=== PATIENT | female | born 1975 | race American Indian/Alaskan Native ===

== ENCOUNTER 2017-07-05 08:42 | Emergency (ER) | payer MEDICAID ==
--- NOTE | 2017-07-05 11:43 | Emergency Department Report ---
HPI - General Chief Complaint: Back Pain/Injury Time Seen by Provider: 07/05/17 11:42 - HPI HPI: Patient here reports that she is having back pain to her lower back with radiating down to her hips and buttocks. She said assuming going on for a week. She says she was seen at [facility] 6 days ago and he didn't do anything. Patient blood pressure is elevated at 160/104 and she says she's been out of her blood pressure medication for 2 weeks. She takes losartan 50/ 12.5 mg HCTZ combination. Back pain is 9 out of 10 and achy. Denies any urinary burning frequency or urgency. Denies any nausea or vomiting. Last menstrual period was 07/04/2017 and she is still on her period. Denies any fever or chills. Denies any abdominal pain. Patient has a history of chronic back pain, anemia and high blood pressure. She says she took [id number] pain medication but it didn't help. ED Past Medical Hx - Past Medical History Previous Medical History?: Yes Hx Hypertension: Yes Hx Congestive Heart Failure: No Hx Diabetes: No Hx Seizures: No Hx Asthma: No Hx COPD: No Hx Dementia: No Hx HIV: No Additional medical history: ANEMIA, Back pain - Surgical History Past Surgical History?: Yes Additional Surgical History: CS - Family History Family history: hypertension - Social History Smoking Status: Former Smoker Substance Use Type: Non Opiate Pain, Prescribed - Medications Home Medications: Home Medications Medication Instructions Recorded Confirmed Last Taken Type Ferrous Sulfate 325 mg PO TID 10/26/14 05/08/16 1 Day Ago History ~10/25/14 Promethazine Dm [Phenergan Dm 5 ml PO Q6H PRN #50 ml 10/26/14 05/08/16 Unknown Rx 6.25/15 mg 5 ml] Losartan-Hctz 50-12.5 mg Tab 1 mg PO AZUL 05/08/16 05/08/16 Unknown History Azithromycin [Zithromax TAB] 250 mg PO QDAY #5 tablet 05/09/16 Unknown Rx Pantoprazole [Protonix TAB] 20 mg PO BID #60 tablet. 05/09/16 Unknown Rx Cyclobenzaprine [Flexeril] 10 mg PO TID PRN 5 Days #15 tablet 07/05/17 Unknown Rx traMADol [Ultram] 50 mg PO Q6HR PRN 5 Days #20 tablet 07/05/17 Unknown Rx ED Review of Systems ROS: Stated complaint: BACK/HIP PAIN Other details as noted in HPI Comment: All other systems reviewed and negative Constitutional: no symptoms reported ENT: denies: throat pain Respiratory: no symptoms reported Cardiovascular: denies: chest pain, palpitations, dyspnea on exertion, edema, syncope, paroxysmal nocturnal dyspnea Genitourinary: denies: urgency, dysuria, frequency, hematuria, discharge Musculoskeletal: back pain. denies: joint swelling, arthralgia, myalgia Skin: denies: rash Neurological: denies: headache, weakness, numbness, paresthesias, confusion, abnormal gait Physical Exam - Physical Exam Vital Signs: Vital Signs 07/05/17 09:26 Temperature 98.1 F Pulse Rate 85 Respiratory 20 Rate Blood Pressure 160/104 O2 Sat by Pulse 96 Oximetry Vital Signs 07/05/17 07/05/17 09:26 13:10 Temperature 98.1 F Pulse Rate 85 73 Respiratory 20 Rate Blood Pressure 160/104 143/95 O2 Sat by Pulse 96 Oximetry General: 41-year-old female well-nourished well-developed in no acute distress. Patient is morbidly obese Physical Exam: Head: Normocephalic, atraumatic, no abrasion, no bruising and no contusion. Eyes: Biateral pupils equal and reactive to light, bilateral EOM intact.. Bilateral conjunctival and sclera without injection, normal accommodation. No nystagmus Mouth: Moist, no pharyngeal exudate or erythema. No peritonsillar abscesses. Uvula is midline and oral airways patent. Neck: Supple, No Cervical adenopathy, full range of motion and no C-spine tenderness. No swelling or tracheal deviation normal reflexes Cardiovascular: S1, S2. Regular rate and rhythm. No murmur. Capillary refill is less then 3 seconds. Blood pressure elevated and asymptomatic. Lungs: Clear to auscultate bilaterally. No rhonchi, wheezes or rales. No chest wall tenderness. No chest contusion. No bruising to chest. MSK: Strength 5/5 in all extremities. No joint deformity or crepitus. Normal inspection. Full range of motion to all extremities. No laceration, abrasion or ecchymotic area noted. Patient able to fully flex and extend bilateral knees without any difficulties. Bilateral knees nontender to palpate. Abdomen: Non-tender to palpate in all quadrants, no guarding or rebound tenderness, positive bowel sounds in all quadrants. No CVA tenderness. No hernia, bruit or mass. No rigidity or distention. Extremities: No clubbing, cyanosis or edema. +2 pulses. No neurovascular compromise Skin: Clean, dry and intact. No rash or lesions. Neurological: GCS at 15, Pt is alert and oriented 3 speech is clear. Bilateral hand pen and pencil repairer strong and equal. Normal gait. Negative Romberg and no pronator drift. Normal Reflexes. No motor or sensory deficit Back: No vertebral tenderness, no paraspinal tenderness. The bend over and touch his toes without any difficulties. No saddle anesthesia and negative SLR bilaterally. Ambulates without any difficulties. Psych: Normal mood and behavior ED Course Vital Signs 07/05/17 09:26 Temperature 98.1 F Pulse Rate 85 Respiratory 20 Rate Blood Pressure 160/104 O2 Sat by Pulse 96 Oximetry Vital Signs 07/05/17 07/05/17 09:26 13:10 Temperature 98.1 F Pulse Rate 85 73 Respiratory 20 Rate Blood Pressure 160/104 143/95 O2 Sat by Pulse 96 Oximetry - Reevaluation(s) Reevaluation #1: 07/05/17 15:03 Patient given clonidine 0.1 mg by mouth in emergency room for elevated blood pressure, she was given Toradol 60 mg IM and Flexeril 10 mg by mouth for back pain. ED Medical Decision Making - Lab Data Lab Results 07/05/17 Range/Units Unknown Urine Color Yellow (Yellow) Urine Turbidity Clear (Clear) Urine pH 6.0 (5.0-7.0) Ur Specific [place] 1.025 (1.003-1.030) Urine Protein <15 mg/dl (Negative) mg/dL Urine Glucose (UA) Neg (Negative) mg/dL Urine Ketones Neg (Negative) mg/dL Urine Blood Lg (Negative) Urine Nitrite Neg (Negative) Urine Bilirubin Neg (Negative) Urine Urobilinogen 4.0 (<2.0) mg/dL Ur Leukocyte Esterase Neg (Negative) Urine WBC (Auto) 1.0 (0.0-6.0) /HPF Urine RBC (Auto) 147.0 (0.0-6.0) /HPF U Epithel Cells (Auto) 1.0 (0-13.0) /HPF Urine Mucus Few /HPF Urine HCG, Qual Negative (Negative) Patient with large amount of blood in her urine because she is on her period that started yesterday. - Radiology Data Radiology results: report reviewed CT scan of lumbar spine without contrast reveals patient with unremarkable CT of the lumbar spine. There are mild symmetric osteoarthritic changes of the S1 joints. - Medical Decision Making ED course: Patient here reports that she is having back pain or radiation to her hip and buttocks. She is has a history of chronic back pain. Urinalysis negative for any infection she has large amount of blood but she is on her period. Patient with normal back and neurological exam. Patient is morbidly obese and I discussed with her CT scan results and also urinalysis. I discussed with her that she needs to lose some weight which will help her back pain. Patient also has hypertension and has been out of her blood pressure medication for 2 weeks. She was given clonidine 0.1 mg by mouth in emergency room for blood pressure of 160/104. She was given Toradol 60 mg IM and Flexeril 10 mg by mouth for lower back pain. Blood pressure is better and her pain has been relieved. Patient discharged home with prescription for losartanTZ 5012 0.5 mg 1 tablet daily. Flexeril and Ultram. Discussed that she is to follow up with her primary care physician and also orthopedic doctor. Discharged from ED in stable condition Critical care attestation.: If time is entered above; I have spent that time in minutes in the direct care of this critically ill patient, excluding procedure time. ED Disposition Clinical Impression: Low back pain radiating to lower extremity, Osteoarthritis of sacroiliac joint , Elevated blood pressure reading with diagnosis of hypertension, Morbid obesity with BMI of 50.0-59.9, adult Disposition: DC- TO HOME OR SELFCARE Is pt being admited?: No Does the pt Need Aspirin: No Condition: Stable Instructions: Hypertension (ED), Arthralgia (ED), Back Pain (ED), Obesity (ED) , Weight Management (ED) Additional Instructions: Please follow discharge instructions on weight management. Follow-up with primary care and orthopedic doctor as instructed Please do not drive or operate heavy machinery while taking Flexeril as this medication causes drowsiness. Keep a log a few blood pressure and scheduled an appointment with your primary care doctor for evaluation. These take blood pressure medication as prescribed and please do not let medication ran out before you see your primary care doctor. If you do not have a primary care doctor then you can call [facility] and be seen there Prescriptions: Cyclobenzaprine [Flexeril] 10 mg PO TID PRN 5 Days #15 tablet PRN Reason: Muscle Spasm traMADol [Ultram] 50 mg PO Q6HR PRN 5 Days #20 tablet PRN Reason: Pain Referrals: SHILA POND MD [Primary Care Provider] - 07/07/[address] [facility] [Outside] - 07/07/17 ANNA NATHAN MD [Staff Physician] - 07/07/17 Forms: Work/School Release Form(ED)
[2017-07-05] MEDS ORDERED: FLEXERIL PO ONE (12:44)
[2017-07-05] MEDS ORDERED: TORADOL IM ONE (12:44)
[2017-07-05 12:57] LABS: Bilirubin,Urine NEG (Negative); Blood,Urine LG (Negative); Color,Urine Yellow (Yellow); HCG Qualitative,Urine Negative (Negative); Mucus,Urine FEW /HPF; Nitrite,Urine NEG (Negative); Protein,Urine <15 mg/dL mg/dL (Negative)
[2017-07-05] MEDS ORDERED: CATAPRES PO ONE (13:04)
--- NOTE | 2017-07-05 14:34 | Cat Scan Report ---
CT LUMBAR SPINE WITHOUT CONTRAST HISTORY: Lower back pain with radiculopathy TECHNIQUE: Helical CT with sagittal and coronal reformatted images. FINDINGS: The lumbar vertebral bodies, disc spaces, posterior elements, spinal canal and paraspinal soft tissues are within normal limits. There is no evidence for fracture, malalignment or bone lesion. The paraspinal soft tissues are unremarkable. There are mild symmetric osteoarthritic changes at the SI joints. IMPRESSION: Unremarkable CT of the lumbar spine.
[2017-07-05 15:20] VITALS: BP 137/75
== END 2017-07-05 15:21 | disposition home or self-care (01) ==
LOC: ED 08:42
DX: M47.898 Other spondylosis, sacral and sacrococcygeal region (principal); E66.01 Morbid (severe) obesity due to excess calories; Z68.43 Body mass index [BMI] 50.0-59.9, adult; I10 Essential (primary) hypertension
CPT/HCPCS: 72131; 81001; 81025; 96372; 99284; J1885

== ENCOUNTER 2017-12-30 22:11 | Emergency (ER) | payer MEDICAID ==
[2017-12-31 03:54] VITALS: BP 128/77
[2017-12-31] MEDS ORDERED: MOTRIN PO ONE (03:56)
--- NOTE | 2017-12-31 03:57 | Emergency Department Report ---
ED Back Pain/Injury HPI - General Chief Complaint: Back Pain/Injury Stated Complaint: ABDOMINAL PAIN Time Seen by Provider: 12/31/17 03:05 Source: patient Limitations: No Limitations - History of Present Illness Initial Comments: 42-year-old female past medical history obesity, hypertension, anemia, chronic back pain presents with acute on chronic lower back pain worse on left than right. Patient denies fevers chills nausea vomiting dysuria but does claim she has slight increased urinary frequency. Patient is awake alert and oriented 3 not in acute distress and ambulatory. Denies any direct trauma to back or recent falls. Patient is fully lucid. Does not appear to be in acute distress. Denies any saddle paresthesias. Denies any bladder or bowel incontinence. MD Complaint: back pain Onset/Timin -: days(s) Similar Symptoms Previously: No Place: home Severity: moderate Severity scale (0 -10): 5 Quality: dull, aching Consistency: intermittent Context: turning/twisting, bending Treatments Prior to Arrival: acetaminophen, other medications - Related Data Home Medications Medication Instructions Recorded Confirmed Last Taken Ferrous Sulfate 325 mg PO TID 10/26/14 05/08/16 1 Day Ago ~10/25/14 Losartan-Hctz 50-12.5 mg Tab 1 mg PO AZUL 05/08/16 05/08/16 Unknown Previous Rx's Medication Instructions Recorded Last Taken Type Promethazine Dm [Phenergan Dm 5 ml PO Q6H PRN #50 ml 10/26/14 Unknown Rx 6.25/15 mg 5 ml] Azithromycin [Zithromax TAB] 250 mg PO QDAY #5 tablet 05/09/16 Unknown Rx Pantoprazole [Protonix TAB] 20 mg PO BID #60 tablet.dr 05/09/16 Unknown Rx Cyclobenzaprine [Flexeril] 10 mg PO TID PRN 5 Days #15 tablet 07/05/17 Unknown Rx traMADol [Ultram] 50 mg PO Q6HR PRN 5 Days #20 tablet 07/05/17 Unknown Rx Cyclobenzaprine [Flexeril] 10 mg PO TID PRN #10 tablet 12/31/17 Unknown Rx Ibuprofen [Motrin] 800 mg PO Q8HR PRN #20 tablet 12/31/17 Unknown Rx Nitrofurantoin Monohyd/M-Cryst 100 mg PO BID #10 capsule 12/31/17 Unknown Rx [Macrobid 100 mg Capsule] Allergies Allergy/AdvReac Type Severity Reaction Status Date / Time No Known Allergies Allergy Verified 12/30/17 23:29 ED Review of Systems ROS: Stated complaint: ABDOMINAL PAIN Other details as noted in HPI Constitutional: denies: chills, fever Eyes: denies: eye pain, eye discharge, vision change ENT: denies: ear pain, throat pain Respiratory: denies: cough, shortness of breath, wheezing Cardiovascular: denies: chest pain, palpitations Endocrine: no symptoms reported Gastrointestinal: denies: abdominal pain, nausea, diarrhea Genitourinary: denies: urgency, dysuria, discharge Musculoskeletal: back pain (chronic back pain). denies: joint swelling, arthralgia Skin: denies: rash, lesions Neurological: denies: headache, weakness, paresthesias Psychiatric: denies: anxiety, depression Hematological/Lymphatic: denies: easy bleeding, easy bruising ED Past Medical Hx - Past Medical History Hx Hypertension: Yes Hx Congestive Heart Failure: No Hx Diabetes: No Hx Seizures: No Hx Asthma: No Hx COPD: No Hx Dementia: No Hx HIV: No Additional medical history: ANEMIA, Back pain - Surgical History Additional Surgical History: CS - Social History Smoking Status: Never Smoker Substance Use Type: Alcohol - Medications Home Medications: Home Medications Medication Instructions Recorded Confirmed Last Taken Type Ferrous Sulfate 325 mg PO TID 10/26/14 05/08/16 1 Day Ago History ~10/25/14 Promethazine Dm [Phenergan Dm 5 ml PO Q6H PRN #50 ml 10/26/14 05/08/16 Unknown Rx 6.25/15 mg 5 ml] Losartan-Hctz 50-12.5 mg Tab 1 mg PO AZUL 05/08/16 05/08/16 Unknown History Azithromycin [Zithromax TAB] 250 mg PO QDAY #5 tablet 05/09/16 Unknown Rx Pantoprazole [Protonix TAB] 20 mg PO BID #60 tablet. 05/09/16 Unknown Rx Cyclobenzaprine [Flexeril] 10 mg PO TID PRN 5 Days #15 tablet 07/05/17 Unknown Rx traMADol [Ultram] 50 mg PO Q6HR PRN 5 Days #20 tablet 07/05/17 Unknown Rx Cyclobenzaprine [Flexeril] 10 mg PO TID PRN #10 tablet 12/31/17 Unknown Rx Ibuprofen [Motrin] 800 mg PO Q8HR PRN #20 tablet 12/31/17 Unknown Rx Nitrofurantoin Monohyd/M-Cryst 100 mg PO BID #10 capsule 12/31/17 Unknown Rx [Macrobid 100 mg Capsule] ED Physical Exam - General Limitations: No Limitations General appearance: alert, in no apparent distress - Head Head exam: Present: atraumatic, normocephalic - Eye Eye exam: Present: normal appearance, PERRL, EOMI Pupils: Present: normal accommodation - ENT ENT exam: Present: mucous membranes moist - Neck Neck exam: Present: normal inspection - Respiratory Respiratory exam: Present: normal lung sounds bilaterally. Absent: respiratory distress - Cardiovascular Cardiovascular Exam: Present: regular rate, normal rhythm. Absent: systolic murmur, diastolic murmur, rubs, gallop - GI/Abdominal GI/Abdominal exam: Present: soft, normal bowel sounds - Extremities Exam Extremities exam: Present: normal inspection - Back Exam Back exam: Present: normal inspection, full ROM, paraspinal tenderness (slight paraspinal spine tenderness. No midline vertebral tenderness on exam) - Neurological Exam Neurological exam: Present: alert, oriented X3 - Psychiatric Psychiatric exam: Present: normal affect, normal mood - Skin Skin exam: Present: warm, dry, intact, normal color. Absent: rash ED Course Vital Signs 12/30/17 12/31/17 12/31/17 23:30 03:53 04:05 Temperature 98.1 F 97.7 F Pulse Rate 68 68 Respiratory 18 18 16 Rate Blood Pressure 164/104 Blood Pressure 128/77 [Left] O2 Sat by Pulse 98 99 Oximetry 12/31/17 04:50 Temperature Pulse Rate Respiratory 16 Rate Blood Pressure Blood Pressure [Left] O2 Sat by Pulse Oximetry ED Medical Decision Making - Medical Decision Making A/P: Chronic back pain, urinary tract infection 1-x-ray shows some degenerative changes 2-patient has no clinical neurological deficits on exam. 3-follow up with primary care and orthopedics 4- patient has trace leukocytes on UA. In context of her increased urinary frequency I will treat her empirically with Macrobid. Urine culture sent. Patient has no clinical signs of pyelonephritis and has no flank pain on percussion. Denies fevers nausea or vomiting. Tolerating by mouth fluids and food without difficulty. Critical care attestation.: If time is entered above; I have spent that time in minutes in the direct care of this critically ill patient, excluding procedure time. ED Disposition Clinical Impression: Back pain Qualifiers: Back pain location: low back pain Chronicity: chronic Back pain laterality: unspecified Sciatica presence: without sciatica Qualified Code(s): M54.5 - Low back pain; G89.29 - Other chronic pain Urinary tract infection Qualifiers: Urinary tract infection type: acute cystitis Hematuria presence: without hematuria Qualified Code(s): N30.00 - Acute cystitis without hematuria Disposition: TO HOME OR SELFCARE Is pt being admited?: No Does the pt Need Aspirin: No Condition: Stable Instructions: Chronic Back Pain (ED), Urinary Tract Infection in Women (ED), Obesity (ED) Prescriptions: Cyclobenzaprine [Flexeril] 10 mg PO TID PRN #10 tablet PRN Reason: Muscle Spasm Ibuprofen [Motrin] 800 mg PO Q8HR PRN #20 tablet PRN Reason: Pain , Severe (7-10) Nitrofurantoin Monohyd/M-Cryst [Macrobid 100 mg Capsule] 100 mg PO BID #10 capsule Referrals: ANNA NATHAN MD [Staff Physician] - 3-5 Days [facility] [Outside] - 3-5 Days Forms: Work/School Release Form(ED) Time of Disposition: 06:13
[2017-12-31 04:30] LABS: HCG Qualitative,Urine Negative (Negative)
[2017-12-31 04:31] LABS: Bilirubin,Urine NEG (Negative); Blood,Urine NEG (Negative); Color,Urine Yellow (Yellow); Mucus,Urine 2+ /HPF; Protein,Urine <15 mg/dL mg/dL (Negative)
--- NOTE | 2017-12-31 05:38 | XRay Report ---
FINAL REPORT EXAM: XR SPINE LUMBOSACRAL 2-3V HISTORY: lower back pain TECHNIQUE: AP and lateral views of the lumbar spine were submitted. FINDINGS: The disc heights and alignment appear well maintained. The facet joints appear normal. The SI joints reveal mild arthritic changes bilaterally. The soft tissues are unremarkable. IMPRESSION: Bilateral mild SI joint arthropathy. Otherwise unremarkable exam.
== END 2017-12-31 06:25 | disposition home or self-care (01) ==
LOC: ED 22:11
DX: M54.5 Low back pain (principal); N30.00 Acute cystitis without hematuria; I10 Essential (primary) hypertension
CPT/HCPCS: 72100; 81001; 81025; 87086; 99284

== ENCOUNTER 2019-02-18 15:44 | Emergency (ER) | payer MEDICAID ==
--- NOTE | 2019-02-18 15:52 | Event Note ---
ED Screening Note ED Screening Note: to er with cough and congestion cp with cough no fever or chills pos tobacco htn on losartan has pcp states she is taking her bp meds This initial assessment/diagnostic orders/clinical plan/treatment(s) is/are subject to change based on patients health status, clinical progression and re- assessment by fellow clinical providers in the ED. Further treatment and workup at subsequent clinical providers discretion. Patient/guardian urged not to elope from the ED as their condition may be serious if not clinically assessed and managed. Initial orders include: recheck bp acc eval
[2019-02-18 16:51] VITALS: BP 157/98
--- NOTE | 2019-02-18 16:52 | Emergency Department Report ---
Minor Respiratory - HPI Chief Complaint: Upper Respiratory Infection Stated Complaint: CHEST PAIN/COUGH/WEAKNESS Time Seen by Provider: 02/18/19 15:51 Duration: 3 Days Minor Respiratory: Yes Rhinorrhea, Yes Able to Tolerate Fluids, Yes Cough, Yes Chest Pain (cough), No Sore Throat, No Ear Pain, No Sick Contacts, No Hemoptysis, No Shortness of Breath, No Fever Other History: 42 year old -[place] female presents to the emergency room complaints of cough and chest congestion with weakness 3 days. Patient reports nasal congestion and chest congestion chest pain with cough. Denies any fever chills no nausea no vomiting. Patient reports his taken nothing but Tylenol for pain. ED Review of Systems ROS: Stated complaint: CHEST PAIN/COUGH/WEAKNESS Other details as noted in HPI ED Past Medical Hx - Past Medical History Hx Hypertension: Yes Hx Congestive Heart Failure: No Hx Diabetes: No Hx Seizures: No Hx Asthma: No Hx COPD: No Hx Dementia: No Hx HIV: No Additional medical history: ANEMIA, Back pain - Surgical History Additional Surgical History: CS X5 - Social History Smoking Status: Current Some Day Smoker Substance Use Type: Alcohol - Medications Home Medications: Home Medications Medication Instructions Recorded Confirmed Last Taken Type Losartan-Hctz 50-12.5 mg Tab 1 mg PO AZUL 05/08/16 05/08/16 Unknown History Benzonatate [Tessalon Perles] 100 mg PO Q8HR PRN #15 capsule 02/18/19 Unknown Rx Cetirizine HCl [Zyrtec 10mg tab] 10 mg PO QDAY #15 tablet 02/18/19 Unknown Rx Minor Respiratory Exam - Exam General: Vital signs noted. No distress. Alert and acting appropriately. Neurologic: Alert and oriented, no deficits. Musculoskeletal: Unremarkable. ED Course Vital Signs 02/18/19 15:59 Temperature 98.7 F Pulse Rate 76 Respiratory 20 Rate Blood Pressure 158/105 [Right] O2 Sat by Pulse 98 Oximetry ED Medical Decision Making - Radiology Data Radiology results: report reviewed Patient: BOOKER SHEPPARD MR#: [id number] : 12/30/1976 Acct:[id number] Age/Sex: 42 / F ADM Date: 02/18/19 Loc: ED Attending Dr: Ordering Physician: FERNIE AVALOS Date of Service: 02/18/19 Procedure(s): XR chest routine 2V Accession Number(s): [id number] cc: FERNIE AVALOS Fluoro Time In Minutes: CHEST 2 VIEWS INDICATION / CLINICAL INFORMATION: cough and chest congestion. COMPARISON: 2 views of the chest from 06/07/2018. FINDINGS: SUPPORT DEVICES: None. HEART / MEDIASTINUM: Stable mild cardiomegaly. LUNGS / PLEURA: No significant pulmonary or pleural abnormality. No pneumothorax. ADDITIONAL FINDINGS: No significant additional findings. IMPRESSION: 1. No acute abnormality of the chest. 2. Stable mild cardiomegaly. Signer Name: Malick Acosta MD Signed: 02/18/2019 5:02 PM Workstation Name: [id number] Transcribed By: MN Dictated By: Malick Acosta MD Electronically Authenticated By: Malick Acosta MD Signed Date/Time: 02/18/191701 DD/ 00 TD/TT: - Medical Decision Making 42 year old -[place] female presents to the emergency room complaints of cough and chest congestion with weakness 3 days. Patient reports nasal congestion and chest congestion chest pain with cough. Denies any fever chills no nausea no vomiting. Patient reports his taken nothing but Tylenol for pain. Chest x-ray has been ordered. Critical care attestation.: If time is entered above; I have spent that time in minutes in the direct care of this critically ill patient, excluding procedure time. ED Disposition Clinical Impression: Viral syndrome Disposition: DC-01 TO HOME OR SELFCARE Is pt being admited?: No Does the pt Need Aspirin: No Condition: Stable Instructions: Viral Syndrome (ED) Additional Instructions: Take cough medication as prescribed. Take Zyrtec as prescribed. Increase her fluid intake advance her diet as tolerated. Please incorporate vitamin C Supplement daily Prescriptions: Benzonatate [Tessalon Perles] 100 mg PO Q8HR PRN #15 capsule PRN Reason: Cough Cetirizine HCl [Zyrtec 10mg tab] 10 mg PO QDAY #15 tablet Referrals: [facility] [Provider Group] - 3-5 Days Forms: Work/School Release Form(ED)
--- NOTE | 2019-02-18 17:06 | XRay Report ---
CHEST 2 VIEWS INDICATION / CLINICAL INFORMATION: cough and chest congestion. COMPARISON: 2 views of the chest from 06/07/2018. FINDINGS: SUPPORT DEVICES: None. HEART / MEDIASTINUM: Stable mild cardiomegaly. LUNGS / PLEURA: No significant pulmonary or pleural abnormality. No pneumothorax. ADDITIONAL FINDINGS: No significant additional findings. IMPRESSION: 1. No acute abnormality of the chest. 2. Stable mild cardiomegaly. Signer Name: Malick Acosta MD Signed: 02/18/2019 5:02 PM Workstation Name: [id number]
== END 2019-02-18 17:49 | disposition home or self-care (01) ==
LOC: ED 15:44
DX: B34.9 Viral infection, unspecified (principal); I10 Essential (primary) hypertension; F17.200 Nicotine dependence, unspecified, uncomplicated; Z86.2 Personal history of diseases of the blood and blood-forming organs and certain disorders involving the immune mechanism
CPT/HCPCS: 71046